=== PATIENT | female | born 1965 ===

== ENCOUNTER 2018-07-28 14:52 | Emergency (ER) | payer MEDICAID ==
[2018-07-28 14:54] VITALS: BMI 32.2
[2018-07-28] MEDS ORDERED: Sodium Chloride 0.9% 1,000 ML IV STA (15:17)
[2018-07-28 15:28] LABS: BASO # 0.03 K/mm3 (0.0-2.0); BASO % 0.2 % (0.0-3.0); GRAN # 12.2 (1.4-6.5); GRAN % 74.7 % (50.0-68.0); HEMOGLOBIN 13.4 g/dL (12.0-16.0); LYMPH % 18.5 % (22.0-35.0); MEAN CELL VOLUME 86.1 fl (80.0-105.0); MEAN CORPUSCULAR HEMOGLOBIN 28.6 pg (25.0-35.0); MEAN CORPUSCULAR HGB CONC 33.3 g/dl (31.0-37.0); MONO # 1.1 (0.1-0.6); MONO % 6.6 % (1.0-6.0); RBC 4.68 10^6/uL (3.5-6.1); RED CELL DISTRIBUTION WIDTH 13.9 % (11.5-14.5); WHITE BLOOD COUNT 16.3 10^3/uL (4.5-11.0)
[2018-07-28 15:33] LABS: ALB/GLOB RATIO 1.4 (1.1-1.8); ALBUMIN 4.8 g/dL (3.0-4.8); ALT/SGPT 233 U/L (7-56); AST/SGOT 264 U/L (14-36); BLOOD UREA NITROGEN 11 mg/dL (7-21); CALCIUM 10.4 mg/dL (8.4-10.5); GFR NON-AFRICAN AMERICAN > 60
[2018-07-28 16:29] LABS: URINE BILIRUBIN NEGATIVE (NEGATIVE); URINE BLOOD NEGATIVE (NEGATIVE); URINE GLUCOSE (UA) NEGATIVE (NEGATIVE); URINE LEUKOCYTE ESTERASE SMALL Leu/uL (NEGATIVE); URINE PROTEIN TRACE mg/dL (<30 mg/dL); URINE UROBILINOGEN 0.2 E.U./dL (<1 E.U./dL)
[2018-07-28] MEDS ORDERED: Iohexol 350 MG/100 ML VIAL ONE (16:40)
[2018-07-28 16:43] LABS: URINE APPEARANCE CLOUDY (CLEAR); URINE COLOR YELLOW (YELLOW)
--- NOTE | 2018-07-28 16:43 | ED PDOC ---
Arrival/HPI - General Chief Complaint: Flu-like Symptoms Time Seen by Provider: 07/28/18 15:04 Historian: Patient - History of Present Illness Narrative History of Present Illness (Text): 07/28/18 16:44 A 53 year old female, whose past medical history includes diabetes type 2, hypothyroidism, menopause, and arthritis, presents to the emergency department complaining of dlu-like symptoms for 2 days. Patient reports experiencing subjective fever at home, mild nausea, several episodes of vomiting, body ache, and cough. Has not been given flu shot. Patient denies any other complaints at this time. PMD: Dr. Lashell Palacios Past Medical History - Provider Review Nursing Documentation Reviewed: Yes - Reproductive Menopause: Yes - Cardiac Hx Cardiac Disorders: No - Pulmonary Hx Respiratory Disorders: No - Neurological Hx Neurological Disorder: No - HEENT Hx HEENT Disorder: No - Renal Hx Renal Disorder: No - Endocrine/Metabolic Hx Endocrine Disorders: Yes Hx Diabetes Mellitus Type 2: Yes Hx Hypothyroidism: Yes - Musculoskeletal/Rheumatological Hx Musculoskeletal Disorders: Yes Hx Arthritis: Yes - Psychiatric Hx Substance Use: No - Surgical History Hx Section: Yes (3 c section) - Anesthesia Hx Anesthesia: Yes Hx Anesthesia Reactions: No Hx Malignant Hyperthermia: No Family/Social History - Physician Review Nursing Documentation Reviewed: Yes Family/Social History: No Known Family HX Smoking Status: Never Smoked Hx Alcohol Use: No Hx Substance Use: No Allergies/Home Meds Allergies/Adverse Reactions: Allergies No Known Allergies Allergy (Verified 07/28/18 14:54) Home Medications: Home Meds Medication Instructions Recorded Confirmed Levothyroxine Sodium [Synthroid] 0.088 mg PO DAILY 07/28/18 07/28/18 MetFORMIN ER [Glucophage XR] 500 mg PO DAILY 07/28/18 07/28/18 oxyCODONE/Acetaminophen [Percocet 1 tab PO PRN PRN 07/28/18 07/28/18 5/325 mg Tab] Review of Systems - Physician Review All systems were reviewed & negative as marked: Yes - Review of Systems Constitutional: Fevers (subjective) Respiratory: Cough Gastrointestinal: Nausea (mild), Vomiting (several episodes) Musculoskeletal: Myalgias Physical Exam Vital Signs Reviewed: Yes Vital Signs Temp Pulse Resp BP Pulse Ox 07/28/18 14:53 100.3 F H 110 H 19 135/72 97 Temperature: Febrile Blood Pressure: Normal Pulse: Regular Respiratory Rate: Normal Appearance: Positive for: Well-Appearing, Non-Toxic, Comfortable Pain Distress: None Mental Status: Positive for: Alert and Oriented X 3 - Systems Exam Head: Present: Atraumatic, Normocephalic Pupils: Present: PERRL Extroacular Muscles: Present: EOMI Conjunctiva: Present: Normal Mouth: Present: Moist Mucous Membranes Neck: Present: Normal Range of Motion Respiratory/Chest: Present: Clear to Auscultation, Good Air Exchange. No: Respiratory Distress, Accessory Muscle Use Cardiovascular: Present: Regular Rate and Rhythm, Normal S1, S2. No: Murmurs Abdomen: No: Tenderness, Distention, Peritoneal Signs Back: Present: Normal Inspection Upper Extremity: Present: Normal Inspection. No: Cyanosis, Edema Lower Extremity: Present: Normal Inspection. No: Edema Neurological: Present: GCS=15, CN II-XII Intact, Speech Normal Skin: Present: Warm, Dry, Normal Color. No: Rashes Psychiatric: Present: Alert, Oriented x 3, Normal Insight, Normal Concentration Medical Decision Making ED Course and Treatment: 07/28/18 16:45 Impression: 53 year old female with flu-like symptoms. Physical exam is unremarkable. Plan: -- Chest X-ray -- Abd/Pelvis CT -- Toradol -- IV Fluids -- Influenza A B Stat -- Reassess and disposition Progress Notes: 07/28/18 18:41 Patient reports that she has had ovarian mass for some time and has been evaluated by [facility] and surgery in the past. - Dr. Matos - Lab Interpretations Lab Results: Total Bilirubin 1.9 mg/dL (0.2-1.3) H 07/28/18 15:00 AST 264 U/L (14-36) H 07/28/18 15:00 ALT 233 U/L (7-56) H 07/28/18 15:00 Alkaline Phosphatase 177 U/L (38-126) H 07/28/18 15:00 Total Protein 8.2 g/dL (5.8-8.3) 07/28/18 15:00 Albumin 4.8 g/dL (3.0-4.8) 07/28/18 15:00 Globulin 3.4 gm/dL 07/28/18 15:00 Albumin/Globulin Ratio 1.4 (1.1-1.8) 07/28/18 15:00 Lipase 59 U/L (23-300) 07/28/18 16:00 I have reviewed the lab results: Yes - RAD Interpretation Radiology Orders: 07/28/18 15:17 CHEST PORTABLE [RAD] Stat 07/28/18 16:03 ABD & PELVIS IV CONTRAST ONLY [CT] Stat - Medication Orders Current Medication Orders: Discontinued Medications Sodium Chloride (Sodium Chloride 0.9%) 1,000 mls @ 999 mls/hr IV .Q1H1M STA Stop: 07/28/18 16:17 Last Admin: 07/28/18 15:52 Dose: 999 mls/hr eMAR Start Stop Document 07/28/18 15:52 KW (Rec: 07/28/18 15:54 KW [facility]) Intravenous Solution Start Date 07/28/18 Start Time 15:20 End Date 07/28/18 Ketorolac Tromethamine (Toradol) 30 mg IVP STAT STA Stop: 07/28/18 15:18 Last Admin: 07/28/18 15:45 Dose: 30 mg MAR Pain Assessment Document 07/28/18 15:45 KW (Rec: 07/28/18 15:47 KW [facility]-20) Pain Reassessment Is this a pain reassessment? No Sleep Is patient sleeping during reassessment? No Presence of Pain Presence of Pain Yes Pain Scale Used Protocol: PSCALES Pain Scale Used Numeric Location Pain Location Body Site Throat Generalized Description Description Constant Intensity of Pain at present 10 Acceptable Level of Pain 2 Pain Behavior Moaning Crying Aggravating Factors ADL's IVP Administration Document 07/28/18 15:45 KW (Rec: 07/28/18 15:47 KW [facility]-20) Charges for Administration # of IVP Administrations 1 - Scribe Statement The provider has reviewed the documentation as recorded by the Sherry Burgos Provider Scribe Attestation: All medical record entries made by the Scribe were at my direction and personally dictated by me. I have reviewed the chart and agree that the record accurately reflects my personal performance of the history, physical exam, medical decision making, and the department course for this patient. I have also personally directed, reviewed, and agree with the discharge instructions and disposition. Disposition/Present on Arrival - Present on Arrival Any Indicators Present on Arrival: No History of DVT/PE: No History of Uncontrolled Diabetes: No Urinary Catheter: No History of Decub. Ulcer: No History Surgical Site Infection Following: None - Disposition Have Diagnosis and Disposition been Completed?: Yes Diagnosis: Viral syndrome Disposition: HOME/ ROUTINE Disposition Time: 18:40 Patient Problems: Current Active Problems Problem Status Onset Viral syndrome Acute Condition: IMPROVED Discharge Instructions (ExitCare): Viral Syndrome (DC) Additional Instructions: ZOILA SPAULDING, thank you for letting us take care of you today. The emergency medical care you received today was directed at your acute symptoms. If you were prescribed any medication, please fill it and take as directed. It may take several days for your symptoms to resolve. Return to the Emergency Department if your symptoms worsen, do not improve, or if you have any other problems. Please contact your doctor or call one of the physicians/clinics you have been referred to that are listed on the Patient Visit Information form that is included in your discharge packet. Bring any paperwork you were given at discharge with you along with any medications you are taking to your follow up visit. Our treatment cannot replace ongoing medical care by a primary care provider outside of the emergency department. Thank you for allowing the [facility] team to be part of your care today. Drink plenty of fluids throughout the day to maintain hydration. Follow up with your primary care doctor in 2-3 days for re-evaluation and further management. Prescriptions: Ibuprofen [Motrin] 600 mg PO Q6 PRN #20 tab PRN Reason: Pain, Moderate (4-7) Oseltamivir Phosphate [Tamiflu] 75 mg PO BID #10 capsule [facility] - Follow up with primary Forms: [employer] (Albanian)
[2018-07-28 17:12] LABS: URINE RBC 0 - 2 /hpf (0-2)
[2018-07-28 18:52] VITALS: BP 136/82; PULSE 80; RESP 20; TEMP 98; O2SAT 100
--- NOTE | 2018-07-29 10:13 | RAD ---
Date of service: 07/28/2018 PROCEDURE: CHEST RADIOGRAPH, 1 VIEW HISTORY: r/o infiltrate COMPARISON: None available. FINDINGS: LUNGS: Clear. PLEURA: No pneumothorax or pleural fluid seen. CARDIOVASCULAR: No aortic atherosclerotic calcification present. Normal. OSSEOUS STRUCTURES: No significant abnormalities. VISUALIZED UPPER ABDOMEN: Normal. OTHER FINDINGS: None. IMPRESSION: No active disease.
--- NOTE | 2018-07-29 10:27 | US ---
Date of service: 07/28/2018 HISTORY: elevated LFT's COMPARISON: None. TECHNIQUE: Sonographic evaluation of the abdomen. FINDINGS: LIVER: Measures 16.6 cm. Hepatopedal blood flow. Fatty infiltration manifest ultrasonographically as increased echogenicity of the liver parenchyma. No mass. No intrahepatic bile duct dilatation. GALLBLADDER: Unremarkable. No gallstones. COMMON BILE DUCT: Measures mm. 0.2 PANCREAS: Unremarkable as visualized. No mass. No ductal dilatation. RIGHT KIDNEY: Measures 4.1 x 10.9cm. Normal echogenicity. No calculus, mass, or hydronephrosis. LEFT KIDNEY: Measures 6.2 x 11.3cm. Normal echogenicity. No calculus, mass, or hydronephrosis. SPLEEN: Normal in size and contour. No mass. AORTA: No aneurysmal dilatation. IVC: Unremarkable. OTHER FINDINGS: None. IMPRESSION: Unremarkable abdominal sonogram. Concordant findings (preliminary report) provided by [employer].
--- NOTE | 2018-07-29 12:00 | CT ---
Date of service: 07/28/2018 PROCEDURE: CT Abdomen and Pelvis with contrast HISTORY: diffuse abdominal pain with elevated LFT's COMPARISON: July 28, 2018. Abdominal ultrasound TECHNIQUE: Intravenous contrast dose: 100 cc Omnipaque 350 Radiation dose: Total exam DLP = 805.53 mGy-cm. This CT exam was performed using one or more of the following dose reduction techniques: Automated exposure control, adjustment of the mA and/or kV according to patient size, and/or use of iterative reconstruction technique. FINDINGS: LOWER THORAX: Unremarkable. LIVER: Hepatic steatosis. No focal masses. No intrahepatic bile duct dilatation or perihepatic ascites. Focal fatty sparing adjacent to the falciform ligament. GALLBLADDER AND BILE DUCTS: Unremarkable. PANCREAS: Unremarkable. No gross lesion or ductal dilatation. SPLEEN: Unremarkable. ADRENALS: Pelvic cyst adjacent to the uterus and contiguous with the broad ligament likely adnexal in origin measures 9.1 x 10 cm. KIDNEYS AND URETERS: Unremarkable. No hydronephrosis. No solid mass. VASCULATURE: Unremarkable. No aortic aneurysm. No atherosclerotic calcification or mural plaque present. BOWEL: Unremarkable. No obstruction. No gross mural thickening. APPENDIX: No abnormalities to suggest acute appendicitis. No right lower quadrant inflammatory processes identified. PERITONEUM: Unremarkable. No free fluid. No free air. LYMPH NODES: Unremarkable. No enlarged lymph nodes. BLADDER: Unremarkable. REPRODUCTIVE: Unremarkable. BONES: No acute fracture. OTHER FINDINGS: None. IMPRESSION: No acute findings related to/ accounting for the clinical presentation. Pelvic mass on the left likely adnexal/ovarian cyst. Concordant results (preliminary interpretation) provided by [email or web address]. Procedure Completed: 17:39. Preliminary Report: Dictated and Authenticated: 20:05. Final Interpretation: 11:56. July 29, 2018
== END 2018-07-28 18:51 | disposition home or self-care (01) ==
LOC: MERGE 14:52 → ED 14:52
DX: B34.9 Viral infection, unspecified (principal); E11.9 Type 2 diabetes mellitus without complications; E03.9 Hypothyroidism, unspecified
CPT/HCPCS: 71045; 74177; 76700; 80053; 81001; 81025; 83690; 84703; 85025; 87086; 87804; 96374; 99283; J1885; J7030; Q9967